=== PATIENT | female | born 1985 | race Caucasian/White ===

== ENCOUNTER 2017-09-20 11:45 | Inpatient (IN) | payer SELFPAY ==
[2017-09-20] VITALS (17 sets, daily range): BP systolic 85–126; BP diastolic 51–80; PULSE 62–96; RESP 15–18; TEMP 36.3–37.1; O2SAT 92–100; BMI 27.4; BMI 27.5; BMI 29.3; BMI 29.4
--- NOTE | 2017-09-20 12:02 | CT_ITS ---
STUDY: CT ABDOMEN AND PELVIS WITHOUT CONTRAST REASON FOR EXAM: Female, 32 years old. Abdominal pain and vomiting. RADIATION DOSAGE (If Supplied By Facility): CTDIvol = ( 12.10 ) mGy, DLP = ( 662.36 ) mGycm TECHNIQUE: Transaxial images were obtained from the dome of the diaphragm to the symphysis pubis without oral contrast, and without intravenous contrast. Sagittal and coronal images were reconstructed. Individualized dose optimization techniques were used for this CT. COMPARISON: None. FINDINGS: The visualized lung bases are unremarkable. The visualized portions of the heart are within normal limits. There is evidence of a edema of the portal triads. Small amount of free fluid along the inferior aspect of the right lobe of the liver. Normal gallbladder and extrahepatic biliary system. Normal spleen. Normal pancreas. Normal bilateral adrenal glands. Normal right kidney. Normal left kidney. There is a small hiatal hernia. There is evidence of free fluid in the right lower quadrant adjacent to the terminal ileum. There is evidence of edematous changes in the terminal ileum. Normal colon. The appendix is not well visualized. The differential diagnosis should include acute appendicitis versus Crohn's disease and a terminal ileitis. Tiny amount of free air within the peritoneal fat as well as localized small amount of free air in the right lower quadrant. Normal abdominal aorta. Normal inferior vena cava. Normal retroperitoneum. Normal urinary bladder. A small amount of free fluid is seen in the pelvis. Follicles are seen in both ovaries. There is a small umbilical hernia containing fat. Straightening of the normal lumbar lordosis. CT/Abdomen/Pelvis W IV Cont ONLY IMPRESSION: Edema of the portal triads. Small amount of free fluid along the inferior aspect of the liver as well as in the pelvis. Inflammatory changes in the right lower quadrant. The differential diagnosis should include Crohn's disease or appendicitis. Small amount of free air is seen in the right lower quadrant as well as within the peritoneal cavity. A repeat examination with oral contrast would be helpful. Electronically Signed: Loc Rodriguez MD at 14:27 EDT Tel [phone], Service support ,
--- NOTE | 2017-09-20 12:03 | ED.VISSUMM ---
- ER Visit Summary Date of Service: 09/20/17 Chief Complaint: Abdominal pain History of Present Illness: The patient is a 32 F with no medical history who presents for abdominal pain since yesterday. Pain is gradually worsened and is sharp and cramping in the lower abdomen. It waxes and wanes in intensity. It is worsened today. Patient has associated nausea and vomiting. No diarrhea, dysuria, hematuria. She took a test that was negative this morning. She is currently on prednisone for poison chris for the last 4 days. No other medical issues. No other symptoms. Physical Examination: Vital signs: afebrile, hemodynamically stable, no hypoxia on room air General: well nourished, well developed, laying left lateral recumbent with knees drawn to the chest, appears uncomfortable Skin: warm, dry, pale, rash consistent with poison chris noted on the extremities HEENT: normocephalic and atraumatic; PERRL, EOMI, tacky mucous membranes Cardiovascular: regular rate and rhythm without murmurs, no peripheral edema, 2+ pulses all distal extremities Respiratory: No increased work of breathing, lungs are clear to auscultation bilaterally, no rales, rhonchi or wheezing Abdominal: Abdomen is soft, diffusely tender with maximal tenderness in the left pelvic region, with normoactive bowel sounds, no guarding or rebound, no masses MSK: Moves all extremities, no deformities, normal strength Neuro: Awake and alert, oriented ?4. No facial droop, sensation and motor function intact and symmetric Test Results: Abnormal Lab Results 09/20/17 09/20/17 09/20/17 12:22 12:22 12:22 WBC 13.9 H RBC 4.16 L Hgb 12.0 Hct 35.8 L MCV 86.1 MCH 28.8 MCHC 33.5 RDW 12.7 RDW Differential 39.3 Plt Count 238 MPV 9.5 Immature Gran % (Auto) 0.100 Neut % (Auto) 82.0 H Lymph % (Auto) 11.2 L [place] % (Auto) 6.4 Eos % (Auto) 0.1 Baso % (Auto) 0.2 Absolute Neuts (auto) 11.4 H Absolute Lymphs (auto) 1.55 Total Counted Not Reportable Sodium 140 Potassium 3.2 L Chloride 106 Carbon Dioxide 27.0 Anion Gap 7 BUN 15 Creatinine 0.68 Estim Creat Clear Calc 100.07 Est GFR (MDRD) Af Amer 130 Est GFR (MDRD) Non-Af 108 BUN/Creatinine Ratio 22.0 H Glucose 115 H Lactic Acid 1.4 Calcium 8.2 L Total Bilirubin 0.30 AST 7 L ALT 19 Alkaline Phosphatase 45 Total Protein 7.0 Albumin 3.6 Globulin 3.4 Albumin/Globulin Ratio 1.1 Lipase 60 L Urine Color Urine Clarity Urine pH Ur Specific [place] Urine Protein Urine Glucose (UA) Urine Ketones Urine Occult Blood Urine Nitrite Urine Bilirubin Urine Urobilinogen Ur Leukocyte Esterase Urine RBC Urine WBC Ur Squamous Epith Cells Urine Bacteria Urine Mucus Urine Test 09/20/17 09/20/17 13:03 13:03 WBC RBC Hgb Hct MCV MCH MCHC RDW RDW Differential Plt Count MPV Immature Gran % (Auto) Neut % (Auto) Lymph % (Auto) [place] % (Auto) Eos % (Auto) Baso % (Auto) Absolute Neuts (auto) Absolute Lymphs (auto) Total Counted Sodium Potassium Chloride Carbon Dioxide Anion Gap BUN Creatinine Estim Creat Clear Calc Est GFR (MDRD) Af Amer Est GFR (MDRD) Non-Af BUN/Creatinine Ratio Glucose Lactic Acid Calcium Total Bilirubin AST ALT Alkaline Phosphatase Total Protein Albumin Globulin Albumin/Globulin Ratio Lipase Urine Color Yellow Urine Clarity Clear Urine pH 6.5 Ur Specific [place] 1.010 Urine Protein 15 H Urine Glucose (UA) Normal Urine Ketones Negative Urine Occult Blood 25 H Urine Nitrite Negative Urine Bilirubin Negative Urine Urobilinogen Normal Ur Leukocyte Esterase Negative Urine RBC 0-5 SEEN Urine WBC 0 SEEN Ur Squamous Epith Cells 0-5 SEEN Urine Bacteria 0 SEEN Urine Mucus 0 SEEN Urine Test Negative Clinical Impression(s) from Imaging Studies Abdomen/Pelvis CT 09/20/17 12:02 IMPRESSION: Edema of the portal triads. Small amount of free fluid along the inferior aspect of the liver as well as in the pelvis. Inflammatory changes in the right lower quadrant. The differential diagnosis should include Crohn's disease or appendicitis. Small amount of free air is seen in the right lower quadrant as well as within the peritoneal cavity. A repeat examination with oral contrast would be helpful. Electronically Signed: Loc Rodriguez MD at 14:27 EDT Tel [phone], Service support , Emergency Department Course and Treatment: Patient was given IV fluids, morphine and Zofran for symptomatic relief. CT the abdomen and pelvis was performed given the concerning history and exam. Labs remarkable for leukocytosis of 13.9. Potassium slightly low at 3.2. Hepatic function and lipase normal. Urine negative for infection. negative. Lactate normal 1.4. CT abdomen and pelvis shows inflammatory changes concerning for ileitis versus appendicitis with free fluid and free air in the abdomen. Patient required additional morphine for pain control. Given the findings on CT scan and the leukocytosis, patient was started on Zosyn. She was discussed with Dr. Lara, who requested potassium repletion prior to going to the OR. Patient will be admitted for surgical intervention by Dr. Marco qiu. Treatment Plan: [] Disposition: [] Impression: Abdominal pain free fluid in intraperitoneal air, concern for ruptured appendicitis This note was generated with [employer] dictation software. It may contain incorrect words, spelling, and punctuation that were not noted in review of the chart prior to signing ED Disposition - Plan for ED Patient: Chief Complaint: Abd Pain
[2017-09-20] MEDS: 0.9% Normal Saline 1,000 ML 1000 ML IV (12:27)
[2017-09-20] MEDS: Morphine 4 MG/ML Syringe IV ×2 (12:28→13:55)
[2017-09-20] MEDS: Ondansetron 4 MG/2 ML Vial IV (12:28)
[2017-09-20 12:32] LABS: Absolute Lymphocyte Count 1.55 X10^3/ul (0.83-4.51); Absolute Neutrophil Count 11.4 X10^3/uL (2.0-7.7); Basophil# 0.03 X10^3/uL; Basophil% 0.2 % (0-1); Eosinophil# 0.02 X10^3/uL; Eosinophils% 0.1 % (0-5); Hematocrit 35.8 % (37-47); Lymphocyte # 1.55 X10^3/ul (4.0); Lymphocyte % 11.2 % (19-41); Mean Corp Hgb Conc 33.5 g/gl (32-36); Mean Corpuscular Hgb 28.8 pg (27.0-32.0); Mean Corpuscular Volume 86.1 fL (81-99); Mean Platelet Vol. 9.5 fl (6.2-12.0); Monocyte# 0.89 X10^3/uL; Monocyte% 6.4 % (0-10); Neutrophil # 11.39 X10^3/uL (2.7-7.7); Platelet Count 238 K/mm3 (150-450); RBC Distribution Width CV 12.7 % (11.6-14.6); RBC Distribution Width SD 39.3 fl (35.1-43.9); Red Blood Count 4.16 M/mm3 (4.2-5.4); White Blood Count 13.9 K/mm3 (4.4-11.0)
[2017-09-20 12:33] LABS: POSITIVE COUNT NO; POSITIVE DIFFERENTIAL NO; POSITIVE MORPHOLOGY NO
[2017-09-20 12:46] LABS: ALB/GLOB Ratio 1.1 RATIO (0.9-2.4); AST(SGOT) 7 U/L (15-37); Alanine Aminotransfer ALT/SGPT 19 U/L (13-56); Albumin, Serum 3.6 g/dL (3.2-5.0); Alkaline Phosphatase 45 U/L (45-117); Anion Gap 7 (5-15); BUN 15 mg/dL (7-18); Calcium,Total 8.2 mg/dL (8.5-10.1); Chloride 106 mmol/L (98-107); Creatinine, Serum 0.68 mg/dL (0.55-1.02); EST Glomerular Filtration Rate 108 mL/min (>60); Est Glom Filt Rate - Afr Amer 130 mL/min (>60); Estimated Creatinine Clearance 100.07 ml/min; Globulin 3.4 g/dL (2.2-4.2); Glucose 115 mg/dL (74-106); Lipase 60 U/L (73-393); Potassium 3.2 mmol/L (3.5-5.1); Sodium Level 140 mmol/L (136-145)
[2017-09-20 12:55] LABS: Lactic Acid 1.4 mmol/L (0.4-2.0)
[2017-09-20 13:07] LABS: Bacteria 0 SEEN /hpf (None Seen); Mucous, Urine 0 SEEN /hpf (<or=2+); White Blood Cells 0 SEEN /hpf (0-5)
[2017-09-20 13:10] LABS: Color, Urine Yellow (Yellow); Glucose, Dipstick Normal (Normal); Ketone-Dipstick Negative (Negative); Leukocyte Esterase-Dipstick Negative /ul (Negative); Nitrite-Dipstick Negative (Negative); Occult Blood-Urine 25 /ul (Negative); Protein-Dipstick 15 mg/dl (Negative); Urine Bilirubin Dipstick Negative (Negative); Urine Clarity Clear (Clear); Urine Urobilinogen Normal (Normal); Urine pH 6.5 (5.0 - 8.0)
[2017-09-20 13:14] LABS: Internal QC Validated? YES +Cl - CLEAR BKGD; Pregnancy, Urine Negative Negative
[2017-09-20 13:17] LABS: Red Blood Cells-Urine 0-5 SEEN /hpf (0-5); Squamous Epithelial Cells - UA 0-5 SEEN /hpf (5-10)
--- NOTE | 2017-09-20 16:20 | NURSING ---
NS bolus and Zosyn hung at 1610. See paper documentation.
--- NOTE | 2017-09-20 16:29 | PCM.HP.STD ---
Problem List (1) Perforation of intestine Status: Acute History of Present Illness Date of Admission: 09/20/17 Chief Complaint: Free air and right lower quadrant pain The patient is a 32 year old F who presented to the emergency room with nausea vomiting and abdominal pain. The patient has been on prednisone twice a day since Monday for poison chris. The patient noted that yesterday she developed nausea but it resolved. This morning when she woke up she had abdominal pain that was severe and she had nausea and vomiting. This worsened throughout the day and she presented to the emergency room. She has never had pain like this before. She has no family history of Crohn's disease. She has no personal history of Crohn's disease. She has never had any GI issues. 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 Denies: Fever, Night Sweats HEENT: Denies: Difficulty Swallowing Cardiovascular: Denies: Chest Pain Respiratory: Denies: Cough, Shortness of Breath Gastrointestinal: Reports: Abdominal Pain - Diffuse abdominal pain, Nausea, Vomiting Genitourinary: Denies: Dysuria Musculoskeletal: Denies: Joint Tenderness Skin: Denies: Jaundice Neurological: Denies: Balance problems Psychiatric: Denies: Anxiety Hematologic/ Lymphatic: Denies: Anemia VTE Information - Inpt Only VTE Present on Admission: No VTE Mechan Device Prophylaxis: SCD's Patient Problems: Active and Suspected Problems Perforation of intestine (Acute) - Physical Exam General: Alert, Oriented x3, Cooperative HEENT: Atraumatic, PERRLA, EOMI Oral: Dry Mucosa Neck: Supple Lungs: Normal air movement Cardiovascular: Regular rate, Regular Rhythm Abdomen: Soft, Non-Distended, Rebound Tenderness, Rigid, Tender - Patient is diffusely tender with right lower quadrant guarding. Extremities: No clubbing, No cyanosis Skin: Rash Present Musculoskeletal: No Muscle Wasting Lymphatic: No Cervical, Supraclavicular, or Inguinal Adenopathy Neurological: Cranial nerves II-XII grossly intact Psych/Mental Status: Normal Affect Vital Signs Temp Pulse Resp BP Pulse Ox 97.3 F L 87 15 96/61 97 09/20/17 11:46 09/20/17 16:21 09/20/17 16:21 09/20/17 16:21 09/20/17 16:21 Oxygen Delivery Method Room Air Weight: 155 lb Body Mass Index (BMI) 27.4 Laboratory Tests Past 24 Hrs 09/20/17 09/20/17 09/20/17 12:22 12:22 12:22 WBC 13.9 H RBC 4.16 L Hgb 12.0 Hct 35.8 L MCV 86.1 MCH 28.8 MCHC 33.5 RDW 12.7 RDW Differential 39.3 Plt Count 238 MPV 9.5 Immature Gran % (Auto) 0.100 Neut % (Auto) 82.0 H Lymph % (Auto) 11.2 L [place] % (Auto) 6.4 Eos % (Auto) 0.1 Baso % (Auto) 0.2 Absolute Neuts (auto) 11.4 H Absolute Lymphs (auto) 1.55 Total Counted Not Reportable Sodium 140 Potassium 3.2 L Chloride 106 Carbon Dioxide 27.0 Anion Gap 7 BUN 15 Creatinine 0.68 Estim Creat Clear Calc 100.07 Est GFR (MDRD) Af Amer 130 Est GFR (MDRD) Non-Af 108 BUN/Creatinine Ratio 22.0 H Glucose 115 H Lactic Acid 1.4 Calcium 8.2 L Total Bilirubin 0.30 AST 7 L ALT 19 Alkaline Phosphatase 45 Total Protein 7.0 Albumin 3.6 Globulin 3.4 Albumin/Globulin Ratio 1.1 Lipase 60 L Urine Color Urine Clarity Urine pH Ur Specific [place] Urine Protein Urine Glucose (UA) Urine Ketones Urine Occult Blood Urine Nitrite Urine Bilirubin Urine Urobilinogen Ur Leukocyte Esterase Urine RBC Urine WBC Ur Squamous Epith Cells Urine Bacteria Urine Mucus Urine Test 09/20/17 09/20/17 13:03 13:03 WBC RBC Hgb Hct MCV MCH MCHC RDW RDW Differential Plt Count MPV Immature Gran % (Auto) Neut % (Auto) Lymph % (Auto) [place] % (Auto) Eos % (Auto) Baso % (Auto) Absolute Neuts (auto) Absolute Lymphs (auto) Total Counted Sodium Potassium Chloride Carbon Dioxide Anion Gap BUN Creatinine Estim Creat Clear Calc Est GFR (MDRD) Af Amer Est GFR (MDRD) Non-Af BUN/Creatinine Ratio Glucose Lactic Acid Calcium Total Bilirubin AST ALT Alkaline Phosphatase Total Protein Albumin Globulin Albumin/Globulin Ratio Lipase Urine Color Yellow Urine Clarity Clear Urine pH 6.5 Ur Specific [place] 1.010 Urine Protein 15 H Urine Glucose (UA) Normal Urine Ketones Negative Urine Occult Blood 25 H Urine Nitrite Negative Urine Bilirubin Negative Urine Urobilinogen Normal Ur Leukocyte Esterase Negative Urine RBC 0-5 SEEN Urine WBC 0 SEEN Ur Squamous Epith Cells 0-5 SEEN Urine Bacteria 0 SEEN Urine Mucus 0 SEEN Urine Test Negative Clinical Impression(s) from Imaging Studies Abdomen/Pelvis CT 09/20/17 12:02 IMPRESSION: Edema of the portal triads. Small amount of free fluid along the inferior aspect of the liver as well as in the pelvis. Inflammatory changes in the right lower quadrant. The differential diagnosis should include Crohn's disease or appendicitis. Small amount of free air is seen in the right lower quadrant as well as within the peritoneal cavity. A repeat examination with oral contrast would be helpful. Electronically Signed: Loc Rodriguez MD at 14:27 EDT Tel [phone], Service support , Assessment/Plan All Active Problems Perforation of intestine (Acute) 32-year-old female with free air and perforation of the GI tract 1. The patient's CAT scan shows inflammation and fluid in the right lower quadrant. She also has bubbles of free air. This is likely perforation of the GI tract and most likely in the right lower quadrant. The patient has inflammation and thickening of the ileum but she has no history of Crohn's disease in her family or personal history. This is likely perforated appendicitis. 2. I discussed performing an exploratory laparoscopy on the patient with the patient and her . I discussed that this was likely perforated appendicitis but I was unsure if there would be a healthy stump to staple across. I discussed that I would try to remove the appendix if this was the offending agent but if the base of the appendix was necrotic this would necessitate an ileocecectomy. I also discussed the possibility of Crohn's disease with ileal perforation that this would require an ileocecectomy as well. I discussed the risks of the procedure including but not limited to bleeding, infection, injury to the ureter, need for a stoma, conversion to an open procedure, injury to bowel and subsequent infection in the pelvis. The patient understands all the risks and is willing to proceed. 3. The patient is getting bolus and received Zosyn in the OR. I will take her emergently for a laparoscopic washout and exploration with likely appendectomy. If necessary I will perform an ileocecectomy if there is not a healthy base of the appendix to staple across. 4. Hypokalemia-will replace Norberto Lara MD Pager: [facility] [address] [place] [address] [address] [place] [address] Office:
--- NOTE | 2017-09-20 16:34 | HP.PCM_ITS ---
Problem List (1) Perforation of intestine Status: Acute History of Present Illness Date of Admission: 09/20/17 Chief Complaint: Free air and right lower quadrant pain The patient is a 32 year old F who presented to the emergency room with nausea vomiting and abdominal pain. The patient has been on prednisone twice a day since Monday for poison chris. The patient noted that yesterday she developed nausea but it resolved. This morning when she woke up she had abdominal pain that was severe and she had nausea and vomiting. This worsened throughout the day and she presented to the emergency room. She has never had pain like this before. She has no family history of Crohn's disease. She has no personal history of Crohn's disease. She has never had any GI issues. Past Medical History Allergies No Known Allergies Allergy (Verified 09/20/17 11:48) Home Medications: Ambulatory Orders Medication Instructions Recorded Prednisone See Taper PO BID 09/20/17 Surgical History: no surgical history [employer] History: - - D&C Lives: Spouse/ Significant Other Smoking Status: Former smoker Alcohol: None Drugs: None - *Family History Maternal History Items: No pertinent history Review of Systems Constitutional: Reports: Anorexia, Chills. Denies: Fever, Night Sweats HEENT: Denies: Difficulty Swallowing Cardiovascular: Denies: Chest Pain Respiratory: Denies: Cough, Shortness of Breath Gastrointestinal: Reports: Abdominal Pain - Diffuse abdominal pain, Nausea, Vomiting Genitourinary: Denies: Dysuria Musculoskeletal: Denies: Joint Tenderness Skin: Denies: Jaundice Neurological: Denies: Balance problems Psychiatric: Denies: Anxiety Hematologic/ Lymphatic: Denies: Anemia VTE Information - Inpt Only VTE Present on Admission: No VTE Mechan Device Prophylaxis: SCD's Patient Problems: Active and Suspected Problems Perforation of intestine (Acute) - Physical Exam General: Alert, Oriented x3, Cooperative HEENT: Atraumatic, PERRLA, EOMI Oral: Dry Mucosa Neck: Supple Lungs: Normal air movement Cardiovascular: Regular rate, Regular Rhythm Abdomen: Soft, Non-Distended, Rebound Tenderness, Rigid, Tender - Patient is diffusely tender with right lower quadrant guarding. Extremities: No clubbing, No cyanosis Skin: Rash Present Musculoskeletal: No Muscle Wasting Lymphatic: No Cervical, Supraclavicular, or Inguinal Adenopathy Neurological: Cranial nerves II-XII grossly intact Psych/Mental Status: Normal Affect Vital Signs Temp Pulse Resp BP Pulse Ox 97.3 F L 87 15 96/61 97 09/20/17 11:46 09/20/17 16:21 09/20/17 16:21 09/20/17 16:21 09/20/17 16:21 Oxygen Delivery Method Room Air Weight: 155 lb Body Mass Index (BMI) 27.4 Laboratory Tests Past 24 Hrs 09/20/17 09/20/17 09/20/17 12:22 12:22 12:22 WBC 13.9 H RBC 4.16 L Hgb 12.0 Hct 35.8 L MCV 86.1 MCH 28.8 MCHC 33.5 RDW 12.7 RDW Differential 39.3 Plt Count 238 MPV 9.5 Immature Gran % (Auto) 0.100 Neut % (Auto) 82.0 H Lymph % (Auto) 11.2 L [place] % (Auto) 6.4 Eos % (Auto) 0.1 Baso % (Auto) 0.2 Absolute Neuts (auto) 11.4 H Absolute Lymphs (auto) 1.55 Total Counted Not Reportable Sodium 140 Potassium 3.2 L Chloride 106 Carbon Dioxide 27.0 Anion Gap 7 BUN 15 Creatinine 0.68 Estim Creat Clear Calc 100.07 Est GFR (MDRD) Af Amer 130 Est GFR (MDRD) Non-Af 108 BUN/Creatinine Ratio 22.0 H Glucose 115 H Lactic Acid 1.4 Calcium 8.2 L Total Bilirubin 0.30 AST 7 L ALT 19 Alkaline Phosphatase 45 Total Protein 7.0 Albumin 3.6 Globulin 3.4 Albumin/Globulin Ratio 1.1 Lipase 60 L Urine Color Urine Clarity Urine pH Ur Specific [place] Urine Protein Urine Glucose (UA) Urine Ketones Urine Occult Blood Urine Nitrite Urine Bilirubin Urine Urobilinogen Ur Leukocyte Esterase Urine RBC Urine WBC Ur Squamous Epith Cells Urine Bacteria Urine Mucus Urine Test 09/20/17 09/20/17 13:03 13:03 WBC RBC Hgb Hct MCV MCH MCHC RDW RDW Differential Plt Count MPV Immature Gran % (Auto) Neut % (Auto) Lymph % (Auto) [place] % (Auto) Eos % (Auto) Baso % (Auto) Absolute Neuts (auto) Absolute Lymphs (auto) Total Counted Sodium Potassium Chloride Carbon Dioxide Anion Gap BUN Creatinine Estim Creat Clear Calc Est GFR (MDRD) Af Amer Est GFR (MDRD) Non-Af BUN/Creatinine Ratio Glucose Lactic Acid Calcium Total Bilirubin AST ALT Alkaline Phosphatase Total Protein Albumin Globulin Albumin/Globulin Ratio Lipase Urine Color Yellow Urine Clarity Clear Urine pH 6.5 Ur Specific [place] 1.010 Urine Protein 15 H Urine Glucose (UA) Normal Urine Ketones Negative Urine Occult Blood 25 H Urine Nitrite Negative Urine Bilirubin Negative Urine Urobilinogen Normal Ur Leukocyte Esterase Negative Urine RBC 0-5 SEEN Urine WBC 0 SEEN Ur Squamous Epith Cells 0-5 SEEN Urine Bacteria 0 SEEN Urine Mucus 0 SEEN Urine Test Negative Clinical Impression(s) from Imaging Studies Abdomen/Pelvis CT 09/20/17 12:02 IMPRESSION: Edema of the portal triads. Small amount of free fluid along the inferior aspect of the liver as well as in the pelvis. Inflammatory changes in the right lower quadrant. The differential diagnosis should include Crohn's disease or appendicitis. Small amount of free air is seen in the right lower quadrant as well as within the peritoneal cavity. A repeat examination with oral contrast would be helpful. Electronically Signed: Loc Rodriguez MD at 14:27 EDT Tel [phone], Service support , Assessment/Plan All Active Problems Perforation of intestine (Acute) 32-year-old female with free air and perforation of the GI tract 1. The patient's CAT scan shows inflammation and fluid in the right lower quadrant. She also has bubbles of free air. This is likely perforation of the GI tract and most likely in the right lower quadrant. The patient has inflammation and thickening of the ileum but she has no history of Crohn's disease in her family or personal history. This is likely perforated appendicitis. 2. I discussed performing an exploratory laparoscopy on the patient with the patient and her . I discussed that this was likely perforated appendicitis but I was unsure if there would be a healthy stump to staple across. I discussed that I would try to remove the appendix if this was the offending agent but if the base of the appendix was necrotic this would necessitate an ileocecectomy. I also discussed the possibility of Crohn's disease with ileal perforation that this would require an ileocecectomy as well. I discussed the risks of the procedure including but not limited to bleeding, infection, injury to the ureter, need for a stoma, conversion to an open procedure, injury to bowel and subsequent infection in the pelvis. The patient understands all the risks and is willing to proceed. 3. The patient is getting bolus and received Zosyn in the OR. I will take her emergently for a laparoscopic washout and exploration with likely appendectomy. If necessary I will perform an ileocecectomy if there is not a healthy base of the appendix to staple across. 4. Hypokalemia-will replace Norberto Lara MD Pager: [facility] [address] [place] [address] [address] [place] [address] Office:
[2017-09-20] MEDS: Bupivacaine 0.25% 30 ML Vial (18:55)
--- NOTE | 2017-09-20 19:03 | OP.PCM_ITS ---
Problem List (1) Perforation of intestine Status: Acute Report of Operation Date of Procedure: 09/20/17 Pre-Operative Diagnosis: Perforation of the GI tract Post-Operative Diagnosis: Perforated acute appendicitis with abscess Surgery/Procedure Performed:: Laparoscopic appendectomy Specimen's removed: Appendix Drains: NIDHI Estimated Blood Loss (mL): 20 Fluids Replaced: 2500 Description of Procedure: The patient was brought back to the operating room and general anesthesia was induced. A Banks catheter was placed and there is clear urine. The abdomen was prepped and draped in usual sterile fashion. An incision was made superior to the umbilicus and deepened to the level of the fascia. The fascia was elevated and incised. A finger sweep was performed. A 12 port was placed into the abdomen and inflated and a camera was placed into the abdomen the abdomen was insufflated to 15 mmHg. The abdomen was inspected for any injuries upon entry to the abdomen and there were none. The abdomen was filled with purulent material. Next a left lower quadrant 5 mm port was placed under direct visualization as well as a suprapubic port. There is a lot of inflammation and fluid in the right lower quadrant. This was suctioned dry until the appendix is identified and appeared very inflamed and the cause of the perforation. As inflamed material was dissected free an abscess was encountered and there was ansley perforation of the appendix at the middle of the appendix with an appendicolith erupting from it. This was dissected free using the Enseal until the base of the appendix was reached. While elevating the appendix and dissecting it free the base of the appendix perforated as well. This appear to be from traction as the edges of the base appeared very clean and intact. I was unable to get a good angle at the appendix from the umbilical port and so the left lower quadrant port was upsized to a 12 mm trocar. Next the stapler was placed through the left lower quadrant trocar and across the perforation of the base of the appendix. After the stapler was fired there is a very tiny opening where the stapler did not completely close the opening of the appendix. Since the tissue looked very good I decided to close this with intracorporeal suture. 3 [id number] 2-0 silk sutures were placed across the opening. The outer 2 were used to buttress the staple line and the middle suture went across the opening. After the sutures were tied down there was good closure of the opening and the staple line appeared intact with no leakage of any stool or bowel contents. This was inspected for a long amount of time and no bubbles or fecal material were coming through this. This was very clean and healthy- appearing tissue with no necrosis. Next the abdomen was irrigated with 3 L of fluid and suctioned dry. There is purulent material throughout the abdomen. A 15 mm round drain was placed in the pelvis with the tip of the drain up in the appendiceal abscess cavity. This came out through the left lower quadrant incision. The appendix was then removed from the abdomen in an Endo Catch bag through the umbilical port. The air was allowed to escape from the abdomen. The fascia in the left lower quadrant around the drain was closed with an 0 Vicryl suture in an interrupted fashion. The drain was moved back and forth after the sutures and to make sure it was not sutured in place. Next the umbilical fascia was closed with a [id number] 0 Vicryl suture. All the incisions were irrigated and anesthetized with Marcaine. Incisions were then closed with interrupted 4-0 Monocryl sutures, Steri-Strips, and bandages. The drain was placed to bulb suction. The Banks will be removed at the end of the case. The patient was taken to PACU in stable condition and tolerated the procedure well. - Admit VTE Documentation VTE Mechan Device Prophylaxis: SCD's
[2017-09-20] MEDS: 0.9% NaCl Peripheral Flush Adult/Peds IV ×3 (22:39→23:37)
[2017-09-20] MEDS: Piperacil/Tazobactam 3.375 GM/50 ML ML IV (22:39)
[2017-09-20] MEDS: Dextrose 5%-Lactated Ringers 1,000 ML 125 ML IV (22:40)
[2017-09-21] VITALS (16 sets, daily range): BP systolic 110–135; BP diastolic 64–89; PULSE 71–121; RESP 16–28; TEMP 36.7–37.3; O2SAT 93–96
--- NOTE | 2017-09-21 | APP_PTH ---
PATIENT: RUDOLPH HUNTER LOC: PCU U#:[id number] AGE/SX: 32/F ROOM: [facility] RE09/20/[address]: Dr. Norberto Lara MD : 1985 BED: 1 DIS: 09/24/2017 SPEC #: [id number] RECD: 09/21/17 14:14 STATUS: LEAH RECampos #: [id number] RAÚL: 09/21/17 00:[address]: Norberto Lara DEPT: SURGICAL PATHOLOGY RECD BY: Demond Lorenzo ENTERED: 09/21/17 14:15 SP TYPE: APPENDIX OTHR DR: Dr. Keith Gomez, Tissues: Appendix, NOS Procedures: Surgery Specimen Level III HEADER OPERATION: Laparoscopic appendectomy PRE-OP DIAGNOSIS: Acute appendicitis TISSUE SUBMITTED: Appendix MICROSCOPIC DIAGNOSIS Appendix: Acute appendicitis with focal area of rupture and periappendicitis. RAH:mireya 09/22/17 MICROSCOPIC DESCRIPTION Slides are reviewed. GROSS DESCRIPTION Received is one container labeled with the patient's name and designated appendix. The specimen consists of an L-shaped appendix measuring 8 cm in length and 1 cm in diameter. The appendix appears to be ruptured 2.5 cm away from the tip. The serosal surface is congested and focally covered with morales, purulent exudate. The mucosa is congested and hemorrhagic. The lumen is filled with fecal material. No fecalith is identified. Channeling Machine Runner sections are submitted in one cassette. / SJ:mireya 09/21/17 TC:2 CPT: 12083
[2017-09-21] MEDS: Morphine 4 MG/ML Syringe IV ×3 (04:36→13:44)
[2017-09-21] MEDS: 0.9% NaCl Peripheral Flush Adult/Peds IV ×3 (04:37→13:44)
[2017-09-21] MEDS: Piperacil/Tazobactam 3.375 GM/50 ML ML IV ×3 (05:31→21:57)
[2017-09-21] MEDS: Dextrose 5%-Lactated Ringers 1,000 ML 125 ML IV ×3 (05:31→21:58)
[2017-09-21 07:38] LABS: Absolute Lymphocyte Count 0.42 X10^3/ul (0.83-4.51); Absolute Neutrophil Count 7.4 X10^3/uL (2.0-7.7); Basophil# 0.01 X10^3/uL; Basophil% 0.1 % (0-1); Hematocrit 33.4 % (37-47); Hemoglobin 10.9 g/dl (12.0-15.0); Lymphocyte # 0.42 X10^3/ul (4.0); Lymphocyte % 5.1 % (19-41); Mean Corp Hgb Conc 32.6 g/gl (32-36); Mean Corpuscular Hgb 28.4 pg (27.0-32.0); Mean Platelet Vol. 9.5 fl (6.2-12.0); Monocyte# 0.48 X10^3/uL; Monocyte% 5.8 % (0-10); Neutrophil # 7.36 X10^3/uL (2.7-7.7); Neutrophil % 88.9 % (47-70); Platelet Count 208 K/mm3 (150-450); RBC Distribution Width CV 13.3 % (11.6-14.6); RBC Distribution Width SD 42.7 fl (35.1-43.9); Red Blood Count 3.84 M/mm3 (4.2-5.4); White Blood Count 8.3 K/mm3 (4.4-11.0)
[2017-09-21 07:40] LABS: Differential Indicated SCAN CRITERIA MET; POSITIVE COUNT NO; POSITIVE DIFFERENTIAL YES; POSITIVE MORPHOLOGY NO
[2017-09-21 07:57] LABS: Anion Gap 7 (5-15); BUN 8 mg/dL (7-18); BUN/Creat Ratio 13.3 RATIO (10-20); Calcium,Total 7.6 mg/dL (8.5-10.1); Chloride 109 mmol/L (98-107); EST Glomerular Filtration Rate 124 mL/min (>60); Est Glom Filt Rate - Afr Amer 150 mL/min (>60); Estimated Creatinine Clearance 113.41 ml/min; Glucose 183 mg/dL (74-106); Potassium 3.8 mmol/L (3.5-5.1); Sodium Level 141 mmol/L (136-145)
[2017-09-21 08:08] LABS: Differential Comment SCANNED
--- NOTE | 2017-09-21 08:20 | PCM.PN.SRG ---
Patient Problems: Active and Suspected Problems Perforation of intestine (Acute) Subjective: Patient is doing better this morning. She still reports no flatus. She did not have any nausea vomiting overnight. 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 - Physical Exam General: Alert, Oriented x3, Cooperative Lungs: Normal air movement Cardiovascular: Regular rate, Regular Rhythm Abdomen: Soft, Distended, Tender, - - NIDHI is seropurulent Skin: No rashes Musculoskeletal: No Muscle Wasting Neurological: Cranial nerves II-XII grossly intact Psych/Mental Status: Normal Affect Vital Signs Temp Pulse Resp BP Pulse Ox 98.7 F 84 16 121/68 H 95 09/21/17 06:56 09/21/17 06:56 09/21/17 06:56 09/21/17 06:56 09/21/17 06:56 Oxygen Flow Rate (L/min) 3 Oxygen Delivery Method Room Air Weight: 165 lb 12.602 oz Body Mass Index (BMI) 29.3 Intake and Output for Last 24 Hours 09/19/17 09/20/17 09/21/17 23:59 23:59 23:59 Intake Total 4492 / 4492 808 / 808 Output Total 580 / 580 50 / 50 Balance 3912 / 3912 758 / 758 Laboratory Tests Past 24 Hrs 09/21/17 09/21/17 06:28 06:28 WBC 8.3 RBC 3.84 L Hgb 10.9 L Hct 33.4 L MCV 87.0 MCH 28.4 MCHC 32.6 RDW 13.3 RDW Differential 42.7 Plt Count 208 MPV 9.5 Immature Gran % (Auto) 0.100 Neut % (Auto) 88.9 H Lymph % (Auto) 5.1 L [place] % (Auto) 5.8 Eos % (Auto) 0.0 Baso % (Auto) 0.1 Absolute Neuts (auto) 7.4 Absolute Lymphs (auto) 0.42 L Total Counted Not Reportable Differential Comment SCANNED Sodium 141 Potassium 3.8 Chloride 109 H Carbon Dioxide 25.0 Anion Gap 7 BUN 8 Creatinine 0.60 Estim Creat Clear Calc 113.41 Est GFR (MDRD) Af Amer 150 Est GFR (MDRD) Non-Af 124 BUN/Creatinine Ratio 13.3 Glucose 183 H Calcium 7.6 L Clinical Impression(s) from Imaging Studies Abdomen/Pelvis CT 09/20/17 12:02 IMPRESSION: Edema of the portal triads. Small amount of free fluid along the inferior aspect of the liver as well as in the pelvis. Inflammatory changes in the right lower quadrant. The differential diagnosis should include Crohn's disease or appendicitis. Small amount of free air is seen in the right lower quadrant as well as within the peritoneal cavity. A repeat examination with oral contrast would be helpful. Electronically Signed: Loc Rodriguez MD at 14:27 EDT Tel [phone], Service support , Medical Necessity - Tobacco Use Smoking Status: Former smoker Assessment/Plan All Active Problems Perforation of intestine (Acute) 32-year-old female status post laparoscopic appendectomy for perforated appendicitis 1. Patient may be developing postoperative ileus. Continue n.p.o. on IV fluids until she is passing flatus and less distended. 2. Lovenox, SCDs, Protonix. 3. Continue antibiotics and NIDHI drain. 4. Hypokalemia resolved Norberto Lara MD Pager: [facility] [address] [place] [address], [address] [place] [address] Office:
[2017-09-21] MEDS: Enoxaparin 40 MG/0.4 ML Syringe SC (11:44)
[2017-09-22] VITALS (18 sets, daily range): BP systolic 111–127; BP diastolic 67–80; PULSE 93–141; RESP 16–30; TEMP 36.7–37.7; O2SAT 91–98
[2017-09-22] MEDS: Morphine 2 MG/ML Syringe IV ×4 (02:50→15:18)
[2017-09-22] MEDS: 0.9% NaCl Peripheral Flush Adult/Peds IV ×4 (02:50→15:18)
[2017-09-22] MEDS: Dextrose 5%-Lactated Ringers 1,000 ML 125 ML IV ×2 (06:28→15:12)
[2017-09-22] MEDS: Piperacil/Tazobactam 3.375 GM/50 ML ML IV ×3 (06:28→21:26)
--- NOTE | 2017-09-22 08:20 | PCM.PN.SRG ---
Patient Problems: Active and Suspected Problems Perforation of intestine (Acute) Subjective: Patient reports her abdominal pain is improved and she is requiring less medications. She is starting to pass gas. She has no nausea or vomiting. - Physical Exam General: Alert, Oriented x3, Cooperative Oral: Moist Mucosa Neck: No JVD Lungs: Normal air movement Cardiovascular: Regular Rhythm, Tachycardic Abdomen: Soft, Non-Distended, Tender - Mildly tender in the right lower quadrant, - - Incisions are clean dry and intact Musculoskeletal: No Muscle Wasting Psych/Mental Status: Normal Affect Vital Signs Temp Pulse Resp BP Pulse Ox 98.5 F 109 H 28 H 116/75 97 09/22/17 07:50 09/22/17 07:50 09/22/17 07:50 09/22/17 07:50 09/22/17 07:50 Oxygen Flow Rate (L/min) 2 Oxygen Delivery Method Room Air Weight: 165 lb 12.602 oz Body Mass Index (BMI) 29.3 Intake and Output for Last 24 Hours 09/20/17 09/21/17 09/22/17 23:59 23:59 23:59 Intake Total 4492 / 4492 3520 / 3520 708.8 / 708.8 Output Total 580 / 580 210 / 210 60 / 60 Balance 3912 / 3912 3310 / 3310 648.8 / 648.8 Medical Necessity - Tobacco Use Smoking Status: Former smoker Assessment/Plan All Active Problems Perforation of intestine (Acute) 32-year-old female status post laparoscopic appendectomy for perforated appendicitis 1. Patient has started to pass gas so I will start her on clear liquid diet. 2. She was tachycardic and tachypneic this morning but she feels that she is very comfortable and she has been moved back down on the room air. I encouraged incentive spirometry and ambulation. 3. Continue antibiotics for perforation of her appendix. Norberto Lara MD Pager: [facility] [address] [place] [address], [address] [place] [address] Office:
[2017-09-22] MEDS: Enoxaparin 40 MG/0.4 ML Syringe SC (10:25)
--- NOTE | 2017-09-22 15:11 | CASEMGMT ---
RN [facility] Face to Face with patient for initial transition planning/care coordination assessment. RN CM introduced self and role at [facility]. Patient sitting on edge of bed, alert and oriented, family at bedside. Patient willing to participate in assessment and is able to answer all questions appropriately. Care providers, pharmacy, and demographics verified. See link attached. Patient wishes to discharge home, denies need for home health at this time. Patient states she has no further needs or concerns at this time. CM to follow for discharge planning needs that may arise. Disposition Plan: Patient to [facility] home with family support and follow-up plans in place.
[2017-09-23] VITALS (12 sets, daily range): BP systolic 103–125; BP diastolic 70–90; PULSE 81–100; RESP 15–18; TEMP 36.6–37.1; O2SAT 92–100
[2017-09-23] MEDS: Dextrose 5%-Lactated Ringers 1,000 ML 125 ML IV ×2 (00:07→08:19)
[2017-09-23] MEDS: Acetaminophen 325 MG Tablet 650 MG PO ×3 (00:12→17:35)
[2017-09-23] MEDS: Piperacil/Tazobactam 3.375 GM/50 ML ML IV ×3 (05:22→21:46)
[2017-09-23 06:49] LABS: Absolute Lymphocyte Count 1.01 X10^3/ul (0.83-4.51); Absolute Neutrophil Count 4.8 X10^3/uL (2.0-7.7); Basophil# 0.02 X10^3/uL; Basophil% 0.3 % (0-1); Eosinophil# 0.12 X10^3/uL; Eosinophils% 1.9 % (0-5); Hematocrit 30.7 % (37-47); Hemoglobin 9.7 g/dl (12.0-15.0); Lymphocyte # 1.01 X10^3/ul (4.0); Lymphocyte % 16.1 % (19-41); Mean Corp Hgb Conc 31.6 g/gl (32-36); Mean Corpuscular Hgb 27.6 pg (27.0-32.0); Mean Corpuscular Volume 87.2 fL (81-99); Mean Platelet Vol. 8.9 fl (6.2-12.0); Monocyte# 0.38 X10^3/uL; Neutrophil # 4.75 X10^3/uL (2.7-7.7); Neutrophil % 75.5 % (47-70); Platelet Count 221 K/mm3 (150-450); RBC Distribution Width CV 13.4 % (11.6-14.6); RBC Distribution Width SD 43.1 fl (35.1-43.9); Red Blood Count 3.52 M/mm3 (4.2-5.4); White Blood Count 6.3 K/mm3 (4.4-11.0)
[2017-09-23 07:19] LABS: POSITIVE COUNT NO; POSITIVE DIFFERENTIAL NO; POSITIVE MORPHOLOGY NO
[2017-09-23 07:20] LABS: Anion Gap 7 (5-15); BUN 5 mg/dL (7-18); BUN/Creat Ratio 10.8 RATIO (10-20); Calcium,Total 7.8 mg/dL (8.5-10.1); Chloride 108 mmol/L (98-107); Creatinine, Serum 0.46 mg/dL (0.55-1.02); EST Glomerular Filtration Rate 167 mL/min (>60); Est Glom Filt Rate - Afr Amer 203 mL/min (>60); Estimated Creatinine Clearance 147.93 ml/min; Glucose 118 mg/dL (74-106); Magnesium 1.8 mg/dL (1.6-2.6); Phosphorus 2.4 mg/dL (2.5-4.9); Potassium 3.4 mmol/L (3.5-5.1); Sodium Level 144 mmol/L (136-145)
--- NOTE | 2017-09-23 08:48 | PCM.PN.SRG ---
Patient Problems: Active and Suspected Problems Perforation of intestine (Acute) Subjective: She has tolerated some clears also walking in the halls, but also complains of burping, pain is controlled with pain meds. - Physical Exam General: Alert, Oriented x3, Cooperative Abdomen: Soft, Distended - Moderate, Tender - Near incision, dressed clean dry and intact, left lower site incision with small amount serosanguineous drainage on dressing Extremities: No clubbing, No cyanosis Vital Signs Temp Pulse Resp BP Pulse Ox 98.4 F 87 15 109/77 93 09/23/17 07:58 09/23/17 07:58 09/23/17 07:58 09/23/17 07:58 09/23/17 08:00 Oxygen Flow Rate (L/min) 2 Oxygen Delivery Method Room Air Weight: 165 lb 12.602 oz Body Mass Index (BMI) 29.3 Intake and Output for Last 24 Hours 09/21/17 09/22/17 09/23/17 23:59 23:59 23:59 Intake Total 3520 / 3520 4545.6 / 4545.6 1258.2 / 1258.2 Output Total 210 / 210 60 / 60 Balance 3310 / 3310 4485.6 / 4485.6 1258.2 / 1258.2 Laboratory Tests Past 24 Hrs 09/23/17 09/23/17 06:15 06:15 WBC 6.3 RBC 3.52 L Hgb 9.7 L Hct 30.7 L MCV 87.2 MCH 27.6 MCHC 31.6 L RDW 13.4 RDW Differential 43.1 Plt Count 221 MPV 8.9 Immature Gran % (Auto) 0.200 Neut % (Auto) 75.5 H Lymph % (Auto) 16.1 L Bay % (Auto) 6.0 Eos % (Auto) 1.9 Baso % (Auto) 0.3 Absolute Neuts (auto) 4.8 Absolute Lymphs (auto) 1.01 Total Counted Not Reportable Sodium 144 Potassium 3.4 L Chloride 108 H Carbon Dioxide 29.0 Anion Gap 7 BUN 5 L Creatinine 0.46 L Estim Creat Clear Calc 147.93 Est GFR (MDRD) Af Amer 203 Est GFR (MDRD) Non-Af 167 BUN/Creatinine Ratio 10.8 Glucose 118 H Calcium 7.8 L Phosphorus 2.4 L Magnesium 1.8 Medical Necessity - Tobacco Use Smoking Status: Former smoker Assessment/Plan All Active Problems Perforation of intestine (Acute) 32-year-old female status post laparoscopic appendectomy for perforated appendicitis 1. Patient tolerating some clears however she is still having quite a bit of burping, positive flatus. Continue clears currently 2. Patient is getting up and walking the halls. 3. Continue Zosyn due to perforated appendicitis and patient will also be DC'd with Augmentin when she is ready for discharge. 4. Continue pain control 5. Hypokalemia-replaced Rossi Sherman M.D. Pager: [phone] [facility] [address] [place] [address], [facility], [address] [place] [address] Office: [phone]
--- NOTE | 2017-09-23 08:51 | PN.SURG_ITS ---
Patient Problems: Active and Suspected Problems Perforation of intestine (Acute) Subjective: She has tolerated some clears also walking in the halls, but also complains of burping, pain is controlled with pain meds. - Physical Exam General: Alert, Oriented x3, Cooperative Abdomen: Soft, Distended - Moderate, Tender - Near incision, dressed clean dry and intact, left lower site incision with small amount serosanguineous drainage on dressing Extremities: No clubbing, No cyanosis Vital Signs Temp Pulse Resp BP Pulse Ox 98.4 F 87 15 109/77 93 09/23/17 07:58 09/23/17 07:58 09/23/17 07:58 09/23/17 07:58 09/23/17 08:00 Oxygen Flow Rate (L/min) 2 Oxygen Delivery Method Room Air Weight: 165 lb 12.602 oz Body Mass Index (BMI) 29.3 Intake and Output for Last 24 Hours 09/21/17 09/22/17 09/23/17 23:59 23:59 23:59 Intake Total 3520 / 3520 4545.6 / 4545.6 1258.2 / 1258.2 Output Total 210 / 210 60 / 60 Balance 3310 / 3310 4485.6 / 4485.6 1258.2 / 1258.2 Laboratory Tests Past 24 Hrs 09/23/17 09/23/17 06:15 06:15 WBC 6.3 RBC 3.52 L Hgb 9.7 L Hct 30.7 L MCV 87.2 MCH 27.6 MCHC 31.6 L RDW 13.4 RDW Differential 43.1 Plt Count 221 MPV 8.9 Immature Gran % (Auto) 0.200 Neut % (Auto) 75.5 H Lymph % (Auto) 16.1 L Kings % (Auto) 6.0 Eos % (Auto) 1.9 Baso % (Auto) 0.3 Absolute Neuts (auto) 4.8 Absolute Lymphs (auto) 1.01 Total Counted Not Reportable Sodium 144 Potassium 3.4 L Chloride 108 H Carbon Dioxide 29.0 Anion Gap 7 BUN 5 L Creatinine 0.46 L Estim Creat Clear Calc 147.93 Est GFR (MDRD) Af Amer 203 Est GFR (MDRD) Non-Af 167 BUN/Creatinine Ratio 10.8 Glucose 118 H Calcium 7.8 L Phosphorus 2.4 L Magnesium 1.8 Medical Necessity - Tobacco Use Smoking Status: Former smoker Assessment/Plan All Active Problems Perforation of intestine (Acute) 32-year-old female status post laparoscopic appendectomy for perforated appendicitis 1. Patient tolerating some clears however she is still having quite a bit of burping, positive flatus. Continue clears currently 2. Patient is getting up and walking the halls. 3. Continue Zosyn due to perforated appendicitis and patient will also be DC'd with Augmentin when she is ready for discharge. 4. Continue pain control 5. Hypokalemia-replaced Rossi Sherman M.D. Pager: [phone] [facility] [address] [place] [address], [facility], [address] [place] [address] Office: [phone]
[2017-09-23] MEDS: Na Biphos/Potassium Phosphate PACKET 1 PACKET PO (10:17)
[2017-09-23] MEDS: Enoxaparin 40 MG/0.4 ML Syringe SC (10:18)
[2017-09-23] MEDS: 0.9% NaCl Peripheral Flush Adult/Peds IV (16:04)
[2017-09-24] VITALS (7 sets, daily range): BP systolic 105–122; BP diastolic 59–89; PULSE 77–88; RESP 16–18; TEMP 36.9–37.1; O2SAT 94–95
--- NOTE | 2017-09-24 03:47 | NURSING ---
Patient's lactated ringers not running continuously d/t Zosyn not being compatible and patient refusing second IV.
[2017-09-24] MEDS: Piperacil/Tazobactam 3.375 GM/50 ML ML IV (05:58)
[2017-09-24] MEDS: Acetaminophen 325 MG Tablet 650 MG PO (06:00)
--- NOTE | 2017-09-24 09:01 | PN.SURG_ITS ---
Patient Problems: Active and Suspected Problems Perforation of intestine (Acute) Subjective: Patient is doing well had multiple bowel movements yesterday, up ambulating halls, tolerated full liquids, the previous left lower quadrant drain site only has minimal drainage - Physical Exam General: Alert, Oriented x3, Cooperative, No apparent distress Lungs: Normal air movement Cardiovascular: Regular rate Abdomen: Soft, Distended - Mild, Tender - Appropriately or near incisions, clean dry and intact with Steri's Extremities: No clubbing, No cyanosis, No edema Neurological: Cranial nerves II-XII grossly intact Psych/Mental Status: Normal Affect Vital Signs Temp Pulse Resp BP Pulse Ox 98.4 F 77 16 122/77 H 95 09/24/17 08:05 09/24/17 08:05 09/24/17 08:05 09/24/17 08:05 09/24/17 08:05 Oxygen Flow Rate (L/min) 2 Oxygen Delivery Method Room Air Weight: 165 lb 12.602 oz Body Mass Index (BMI) 29.3 Intake and Output for Last 24 Hours 09/22/17 09/23/17 09/24/17 23:59 23:59 23:59 Intake Total 4545.6 / 4545.6 3632.0 / 3632.0 265.6 / 265.6 Output Total 60 / 60 Balance 4485.6 / 4485.6 3632.0 / 3632.0 265.6 / 265.6 Medical Necessity - Tobacco Use Smoking Status: Former smoker Assessment/Plan All Active Problems Perforation of intestine (Acute) 32-year-old female status post laparoscopic appendectomy for perforated appendicitis 1. Patient tolerating some full liquids will advance to regular 2. Patient is getting up and walking the halls. 3. We will continue Augmentin 875 p.o. twice daily for 5 more days after discharge 4. Continue pain control 5. Okay for discharge today patient tolerates regular diet, continues ambulating, vital signs remained stable and pain remains controlled. Follow with Dr. Lara in 2 weeks. Rossi Sherman M.D. Pager: [phone] [facility] [address] [place] [address], [facility], [address] [place] [id number] Office: [phone]
--- NOTE | 2017-09-24 09:01 | PCM.DC.APPY ---
Discharge Diet: No Restrictions Discharge Activity: May not drive while taking narcotic pain medications., May Shower Lifting Restrictions: No lifting greater than 20 pounds for 4 weeks from surgery Call your doctor if your incision/area has: Continuous Slow Oozing, Sudden Increased Bleeding, Increased Pain/ Swelling, Increased Redness, Foul Smelling Discharge, Swelling at the incision site Call your doctor if you observe: Fever of 101 or Higher Medications to take at Discharge Prednisone See Taper PO BID 09/20/17 Amoxicillin/Potassium Clav [Augmentin 875-125 Tablet] 1 ea PO BID #10 tab 09/24/17 Allergies/Adverse Reactions: Allergies No Known Allergies Allergy (Verified 09/20/17 11:48) Primary Care Physician: Keith Gomez DO [Primary Care Provider] - Test Results: Test results from this visit will be discussed in further detail at your follow-up appointment, if applicable. Please Follow Up With: Norberto Lara MD - After 5:00/weekends call [phone] with any concerns When: Call the office for a follow-up appointment in 2 weeks Proposed Discharge Date: 09/24/17
--- NOTE | 2017-09-24 09:04 | DCINST_ITS ---
Discharge Diet: No Restrictions Discharge Activity: May not drive while taking narcotic pain medications., May Shower Lifting Restrictions: No lifting greater than 20 pounds for 4 weeks from surgery Call your doctor if your incision/area has: Continuous Slow Oozing, Sudden Increased Bleeding, Increased Pain/ Swelling, Increased Redness, Foul Smelling Discharge, Swelling at the incision site Call your doctor if you observe: Fever of 101 or Higher Medications to take at Discharge Prednisone See Taper PO BID 09/20/17 Amoxicillin/Potassium Clav [Augmentin 875-125 Tablet] 1 ea PO BID #10 tab Allergies/Adverse Reactions: Allergies No Known Allergies Allergy (Verified 09/20/17 11:48) Primary Care Physician: Keith Gomez DO [Primary Care Provider] - Test Results: Test results from this visit will be discussed in further detail at your follow- up appointment, if applicable. Please Follow Up With: Norberto Lara MD - After 5:00/weekends call [phone] with any concerns When: Call the office for a follow-up appointment in 2 weeks Proposed Discharge Date: 09/24/17
--- NOTE | 2017-09-24 09:04 | PCM.DC.SUM ---
Discharge Date and Diagnosis - Problem List Patient Problems: Active and Suspected Problems Perforation of intestine (Acute) Acute perforated appendicitis (Acute) Date of Admission: 09/20/17 Date of Discharge: 09/24/17 - Primary Discharge Diagnosis Active and Suspected Problems Perforated appendicitis Perforated intestine Hospital Course and Treatment Imaging Results: Clinical Impression(s) from Imaging Studies Abdomen/Pelvis CT 09/20/17 12:02 IMPRESSION: Edema of the portal triads. Small amount of free fluid along the inferior aspect of the liver as well as in the pelvis. Inflammatory changes in the right lower quadrant. The differential diagnosis should include Crohn's disease or appendicitis. Small amount of free air is seen in the right lower quadrant as well as within the peritoneal cavity. A repeat examination with oral contrast would be helpful. Electronically Signed: Loc Rodriguez MD at 14:27 EDT Tel [phone], Service support , Operations: appendectomy - Otoscopic Summary of Care Provided: The patient is a 32 year old F came into the ER 09/20/17 due to right lower quadrant abdominal pain. CT abdomen pelvis consistent with perforated appendicitis with some free air. Patient was previously on steroids for poison chris which may have masked some of the initial symptoms of appendicitis. For further details of the operative report please see Dr. Lara's operative report. Postoperatively patient did have a slightly slower recovery due to the perforated appendicitis along with purulent fluid in her belly causing he has slight ileus. However patient did regain bowel function and was able to tolerate clears then advanced slowly to full's on a regular diet. Patient did initially have a drain placed during surgery which was removed postop day 2 as there is just serosanguineous fluid. Patient has been ambulating well and pain has been controlled with Tylenol. Discharge Diet: No Restrictions Discharge Activity: May not drive while taking narcotic pain medications., May Shower Call your doctor if your incision/area has: Continuous Slow Oozing, Sudden Increased Bleeding, Increased Pain/ Swelling, Increased Redness, Foul Smelling Discharge, Swelling at the incision site Call your doctor if you observe: Fever of 101 or Higher Home Medications: Medications to take at Discharge Prednisone See Taper PO BID 09/20/17 Amoxicillin/Potassium Clav [Augmentin 875-125 Tablet] 1 ea PO BID #10 tab 09/24/17 Following Prescrptions Were Given to Patient: Amoxicillin/Potassium Clav [Augmentin 875-125 Tablet] 1 ea PO BID #10 tab Primary Care Physician: Keith Gomez DO [Primary Care Provider] - Please Follow Up With: Norberto Lara MD - After 5:00/weekends call [phone] with any concerns When: Call the office for a follow-up appointment in 2 weeks Disposition: Home Minutes spent on discharge:: 15 Patient Condition:: Good Medical Necessity - Tobacco Use Smoking Status: Former smoker Meaningful Use Info Meaningful Use Diagnoses (Choose all that apply): None applicable Code Visit Inpatient E&M: 37384 Disch Hosp
--- NOTE | 2017-09-24 09:09 | DS.PCM_ITS ---
Discharge Date and Diagnosis - Problem List Patient Problems: Active and Suspected Problems Perforation of intestine (Acute) Acute perforated appendicitis (Acute) Date of Admission: 09/20/17 Date of Discharge: 09/24/17 - Primary Discharge Diagnosis Active and Suspected Problems Perforated appendicitis Perforated intestine Hospital Course and Treatment Imaging Results: Clinical Impression(s) from Imaging Studies Abdomen/Pelvis CT 09/20/17 12:02 IMPRESSION: Edema of the portal triads. Small amount of free fluid along the inferior aspect of the liver as well as in the pelvis. Inflammatory changes in the right lower quadrant. The differential diagnosis should include Crohn's disease or appendicitis. Small amount of free air is seen in the right lower quadrant as well as within the peritoneal cavity. A repeat examination with oral contrast would be helpful. Electronically Signed: Loc Rodriguez MD at 14:27 EDT Tel [phone], Service support , Operations: appendectomy - Otoscopic Summary of Care Provided: The patient is a 32 year old F came into the ER 09/20/17 due to right lower quadrant abdominal pain. CT abdomen pelvis consistent with perforated appendicitis with some free air. Patient was previously on steroids for poison chris which may have masked some of the initial symptoms of appendicitis. For further details of the operative report please see Dr. Lara's operative report. Postoperatively patient did have a slightly slower recovery due to the perforated appendicitis along with purulent fluid in her belly causing he has slight ileus. However patient did regain bowel function and was able to tolerate clears then advanced slowly to full's on a regular diet. Patient did initially have a drain placed during surgery which was removed postop day 2 as there is just serosanguineous fluid. Patient has been ambulating well and pain has been controlled with Tylenol. Discharge Diet: No Restrictions Discharge Activity: May not drive while taking narcotic pain medications., May Shower Call your doctor if your incision/area has: Continuous Slow Oozing, Sudden Increased Bleeding, Increased Pain/ Swelling, Increased Redness, Foul Smelling Discharge, Swelling at the incision site Call your doctor if you observe: Fever of 101 or Higher Home Medications: Medications to take at Discharge Prednisone See Taper PO BID 09/20/17 Amoxicillin/Potassium Clav [Augmentin 875-125 Tablet] 1 ea PO BID #10 tab Following Prescrptions Were Given to Patient: Amoxicillin/Potassium Clav [Augmentin 875-125 Tablet] 1 ea PO BID #10 tab Primary Care Physician: Keith Gomez DO [Primary Care Provider] - Please Follow Up With: Norberto Lara MD - After 5:00/weekends call [phone] ?[phone] with any concerns When: Call the office for a follow-up appointment in 2 weeks Disposition: Home Minutes spent on discharge:: 15 Patient Condition:: Good Medical Necessity - Tobacco Use Smoking Status: Former smoker Meaningful Use Info Meaningful Use Diagnoses (Choose all that apply): None applicable Code Visit Inpatient E&M: 60187 Disch Hosp
[2017-09-24] MEDS: Enoxaparin 40 MG/0.4 ML Syringe SC (10:46)
== END 2017-09-24 14:15 | disposition home or self-care (01) | DRG 340 ==
LOC: ED 15:42 → SDC 16:14 → PCU 09-21 09:01 → SDC 09-21 10:17 → MS3 09-21 10:17 → PCU 09-21 10:18
PROVIDERS: Admitting Provider Surgery; Emergency Provider Emergency Medicine; Family Provider Family Medicine; PCP Family Medicine; Visit Provider Surgery
PROC: 0DTJ4ZZ Resection of Appendix, Percutaneous Endoscopic Approach (ICD-10-PCS; CPT 44970; principal; 2017-09-20 08:30)
DX: K35.2 Acute appendicitis with generalized peritonitis (principal); K38.1 Appendicular concretions; E87.6 Hypokalemia
CPT/HCPCS: 36415; 74177; 80048; 80053; 81001; 81025; 83605; 83690; 83735; 84100; 85025; 88304; 97803; 99284; J7030; J7040; J7120; Q9967; A4216; C1760; J2405